=== PATIENT | male | born 1990 | race African-American/Black ===

== ENCOUNTER 2016-04-14 20:22 | Emergency (ER) | payer OTHER, SELFPAY ==
[2016-04-14] MEDS ORDERED: Sulfameth/Trimethoprim DS 800-160mg TAB ONE (21:17)
--- NOTE | 2016-04-14 22:11 | PICIS ---
[facility] EMERGENCY RECORD TRIAGE (TueApr 14, 2016 20:32 MVIL) TRIAGE NOTES: C/O LEFT HAND SWELLING AND PAIN X 2 WEEKS AFTER PUNCHING A GLASS WINDOW. (TueApr 14, 2016 20:32 MVIL) PATIENT: NAME: Fariba Gibbs, AGE: 25, GENDER: male, : Sat 1990, TIME OF GREET: TueApr 14, 2016 20:23, PREFERRED LANGUAGE: Malian, ETHNICITY: Not or , ECODE BILLING MAP: [facility], SSN: [id number], Zip Code: [address], KG WEIGHT: 113.40, HEIGHT/LENGTH: 177.80cm, BMI: 35.87, PHONE: , , , PERSON ID: [id number], PCP: DOROTHY. (TueApr 14, 2016 20:32 MVIL) COMPLAINT: LEFT HAND INJURY. (TueApr 14, 2016 20:32 MVIL) ADMISSION: URGENCY: 4 Non Urgent, ADMISSION SOURCE: Home, TRANSPORT: CAR, BED: ER -03. (TueApr 14, 2016 20:32 MVIL) ASSESSMENT: Assessment: C/O SUDDEN SWELLING TO LEFT HAND TODAY. PATIENT PREVIOUSLY PUNCHED A GLASS WINDOW TWO WEEKS AGO WITH SAME HAND. UTD ON VACCINATIONS., Symptoms began 04/14/2016 20:36, Symptoms began 5 hours ago. (20:38 MVIL) PAIN: Patient complains of pain described as, deep, on a scale 0-10 patient rates pain as 5, Location LEFT HAND, Pain is intermittent, No aggravating factors, No efforts tried to relieve symptoms. (20:38 MVIL) IMMUNIZATIONS: Flu vaccine up to date, Tetanus immunization up to date, Pneumococcal vaccine up to date. (20:38 MVIL) SIRS SCORING: Heart Rate 55-109 (0), Temp range 96.8-101.1 (0), respiratory rate 12-24 (0), Mental Status altered: no (0). (20:38 MVIL) TRIAGE SCREENING: Patient denies suicidal ideation, Patient denies presence of domestic violence. (20:38 MVIL) PROVIDERS: TRIAGE NURSE: Maryann Duncan RN. (TueApr 14, 2016 20:32 MVIL) VITAL SIGNS: BP 144/79, Pulse 75, Resp 20, Temp 98.4, (Oral), Pain 5, O2 Sat 96, on Room Air, Time 04/14/2016 20:29. (20:29 MVIL) PREVIOUS VISIT ALLERGIES: No Known Drug Allergies. (TueApr 14, 2016 20:32 MVIL) No Known Drug Allergies. (20:38 MVIL) KNOWN ALLERGIES No Known Drug Allergies CURRENT MEDICATIONS No recorded medications VITAL SIGNS VITAL SIGNS: BP: 144/79, Pulse: 75, Resp: 20, Temp: 98.4 (Oral), Pain: 5, O2 sat: 96 on Room Air, Time: 04/14/2016 20:29. (20:29 MVIL) BP: 142/64, Pulse: 60, Resp: 20, Pain: 5, O2 sat: 97 on Room Air, Time: 04/14/2016 20:38. (20:38 MVIL) NURSING ASSESSMENT: EXTREMITY UPPER (20:39 MVIL) &a-1R&a+25V*p+0X*g2790L*c202B*c15G*c2P*p-0X&a-25V&a+1R Name: Fariba Gibbs : 1990 M25 MedRec: [id number] AcctNum: [id number] Prepared: TueApr 15, 2016 01:23 by Interface Page 1 of 6 pMD [facility] EMERGENCY RECORD CONSTITUTIONAL: Patient arrives ambulatory, Gait steady, History obtained from patient, Patient appears comfortable, Patient cooperative, Patient alert, Oriented to person, place and time, Skin warm, Skin dry, Skin normal in color, Mucous membranes pink, Mucous membranes moist, Patient is well-groomed, Patient complains of LEFT HAND INJURY, PATIENT PUNCHED A GLASS WINDOW 2 WEEKS AGO. SUDDEN SWELLING NOTED TO THE HAND TODAY. PAIN: deep pain, to the left hand, Onset of pain 04/14/2016 20:42, on a scale 0-10 patient rates pain as 5, Pain exacerbated by nothing, Nothing has been tried to alleviate the pain. LEFT UPPER EXTREMITY: Left upper extremity assessment findings include capillary refill less than 2 seconds, Skin color normal to hand, Skin temperature to hand warm, Distal sensation intact, Muscle tone normal, muscle strength 1, +3 edema present, radial pulse is +4, brachial pulse is +4, Inspection findings include swelling, to LEFT HAND, SWELLING TO TOP OF LEFT HAND. SAFETY: Side rails up, Cart/Stretcher in lowest position, Call light within reach, Hospital ID band on. NURSING PROCEDURE: DISCHARGE NOTE (21:25 MVIL) DISCHARGE: Patient discharged to home, ambulating without assistance, driving self, unaccompanied, Summary of Care printed/ provided, Patient requested and was provided an electronic copy of Discharge Instructions, Transition record given to patient, Discharge instructions given to patient, Prescriptions given and instructions on side effects given, Name of prescription(s) given: BACTRIM, Medication reconciliation form given, Above person(s) verbalized understanding of discharge instructions and follow-up care. BELONGINGS: Belongings and valuables with patient at time of discharge include:. NURSING PROCEDURE: TRANSPORT TO TESTS PATIENT IDENTIFIER: Patient actively involved in identification process, Patient's identity verified by patient stating name, Patient's identity verified by hospital ID bracelet. (20:43 MVIL) TRANSPORT TO TESTS: Transport indicated to facilitate diagnosis, Patient transported to x-ray, ambulatory, Accompanied by x-ray repair technician. (20:43 MVIL) FOLLOW-UP: After procedure, patient returned to emergency department. (20:49 MVIL) ORDER DETAILS Order Name: XR Hand Lt 3 View STANDARD, Status: Active, Time: 20:34 04/14/2016, User: PARAM, - Ordered for: MD Ashraf Darren, - Entered by: MD Ashraf Darren - [facility] Apr 14, 2016 20:34, - Quantity: 1. &a-1R&a+25V*p+0X*x1130C*c202B*c15G*c2P*p-0X&a-25V&a+1R Name: Marthagen Fariba Arcos : 1990 M25 MedRec: [id number] AcctNum: [id number] Prepared: Nancie Apr 15, 2016 01:23 by Interface Page 2 of 6 pMD [facility] EMERGENCY RECORD MEDICATION ADMINISTRATION SUMMARY Drug Name: Bactrim DS, Dose Ordered: 2 tab(s), Route: Oral, Status: Given, Time: 21:20 04/14/2016, Detailed record available in Medication Service section. MEDICATION SERVICE (21:20 DHAM) Bactrim DS: Order: Bactrim DS (sulfamethoxazole/trimethoprim) - Dose: 2 tab(s) : Oral Schedule: Now Ordered by: Rupert Ashraf MD Entered by: Rupert Ashraf MD TueApr 14, 2016 21:13 Documented as given by: Maryann Duncan RN TueApr 14, 2016 21:20 Patient, Medication, Dose, Route and Time verified prior to administration. Amount given: 2 TABS, Correct patient, time, route, dose and medication confirmed prior to administration, Patient advised of actions and side-effects prior to administration, Allergies confirmed and medications reviewed prior to administration, Patient in position of comfort, Side rails up, Cart in lowest position, Family at bedside. HPI HAND (20:35 DHAM) CHIEF COMPLAINT: Patient presents for evaluation of injury, to the left hand. HISTORIAN: History provided by patient. MECHANISM OF INJURY: Known mechanism, Mechanism of injury: hit left fist into glass window 03/28/2016. It swelled for "a few days and the cuts healed up." The swelling had improved but today worsened and the pain has worsened. LOCATION: Symptoms are localized, most severe in the dorsal surface of hand, most severe in the third metacarpal, most severe in the fourth metacarpal. QUALITY: Pain is dull in nature, described as aching, described as pressure-like. SEVERITY: Current severity of pain rated as 5/10. TIME COURSE: Sudden onset of symptoms, 2, weeks ago, Symptoms are worsening, "hard to raise my fingers" (can't extend his left 3rd or 4th fingers) and increased swelling. ASSOCIATED WITH: No associated coolness to touch, No associated decreased use, No associated distal injury, Associated with distal neuro complaint, for 14 to 21 days, constant, No associated elbow pain, No associated erythema, No associated fever, Associated with finger pain, Associated with open wounds, straight laceration, cannot rule out foreign body, puncture wound, bleeding controlled, No associated proximal injury, No associated tingling, Associated with warmth, No associated weakness distal to injury, No &a-1R&a+25V*p+0X*j3492X*c202B*c15G*c2P*p-0X&a-25V&a+1R Name: Fariba Gibbs : 1990 M25 MedRec: [id number] AcctNum: [id number] Prepared: Nancie Apr 15, 2016 01:23 by Interface Page 3 of 6 pMD [facility] EMERGENCY RECORD associated wrist pain, numbness to ulnar side of the left hand just adjacent to the 5th metacarpal. fingers 3 and 4 with normal sensation. EXACERBATED BY: Patient's condition exacerbated by flexion of fingers, Patient's condition exacerbated by extension of all fingers. RELIEVED BY: Patient's condition relieved by remaining still. ROS (20:42 DHAM) CONSTITUTIONAL: Historian denies chills, denies fever, denies lethargy. MUSCULOSKELETAL: Historian reports arthralgias, denies back pain, reports deformity, denies fall, reports injury, reports joint redness, reports joint stiffness, reports joint swelling. SKIN: Historian reports skin lesions, healed lacerations of dorsum of mcp's of 3rd and 4th fingers. NEUROLOGIC: Historian denies confusion, denies paralysis, reports paresthesias, reports sensory changes. HEMO/LYMPHATIC: Historian denies abnormal blood clotting, denies easy bruising. PAST MEDICAL HISTORY (20:38 MVIL) MEDICAL HISTORY: No past medical history. 04/14/16 - HTN, hypercholesterolemia. MALE SURGICAL HISTORY: Patient has no surgical history, Patient has no surgical history. PSYCHIATRIC HISTORY: No previous psychiatric history, No previous psychiatric history. SOCIAL HISTORY: Patient drinks socially, Patient currently uses drugs, abuses marijuana, Last used: 05/24/2015 10:10, Patient currently uses tobacco, smokes cigarettes, daily, patient has smoked for one year, Patient smokes 1/2 packs per day. REVIEWED 04/14/16. PHYSICAL EXAM (20:44 DHAM) CONSTITUTIONAL: Vital Signs Reviewed, Patient afebrile, Pulse normal, Blood pressure normal, Respiratory rate normal, Patient appears non toxic, Patient appears, in moderate pain distress, Patient alert and oriented to person, place and time, Nursing notes reviewed. UPPER EXTREMITY: Pt's only area of pain is the left hand. He has healed lacerations visible dorsally over the left 3rd and 4th mcp's. He has diffuse swelling dorsally over the distal 3rd metacarpal extending over to the 4th distal mcp as well. normal sensation to light touch in all areas of the fingers. normal cap refill to each finger. resisted flexion with normal strength at the profundus and superficialis of all fingers of the left hand. resisted extension of the 4th finger is shows minimal resistance and 3rd finger resisted extension causes pain but strength feels normal. I cannot feel any deformity in the metacarpals though he is tender to palpation of the distal 3rd, 4th and 5th metacarpals. this area of &a-1R&a+25V*p+0X*w1576L*c202B*c15G*c2P*p-0X&a-25V&a+1R Name: Fariba Gibbs : 1990 M25 MedRec: [id number] AcctNum: [id number] Prepared: [facility] Apr 15, 2016 01:23 by Interface Page 4 of 6 pMD [facility] EMERGENCY RECORD swelling if the dorsal hand is not red or swollen or indurated.. No regional lymphadenopathy at the trochlear node or axillary nodes. pt has not rotational abnormality of any of the digits of the left hand. NEURO: Morales coma scale 15, Neuro exam findings include patient oriented to person, place and time, Speech normal, Gait normal, Memory normal, Cranial nerves intact. SKIN: Skin exam included findings of skin warm, dry, and normal in color, no rash. EVENTS TRANSFER: Triage to Emergency Emergency Room -03. (20:32 MVIL) Removed from Emergency Emergency Room -03. (21:25 MVIL) RADIOLOGYINTERPRETATION (21:03 DHAM) UPPER EXTERMITIES: Radiological interpretation of, the left hand shows, fracture noted, to proximal phalanx, 5th finger, which is non-displaced, Foreign body noted, in the dorsal soft tissue of the 4th finger, in the soft tissue of the dorsum of the hand, 2 small flecks of likely glass noted between 4th and 5th mcps, Soft tissue swelling noted, pt has an avlusion fx of the ventral aspect of the proximal end of the 5th proximal phalanx. this is only visible on the lateral view. it appears to involve 15-20% of the articular surface of the prox phalanx at the 5th MCP. O2SAT INTERPRETATION (21:03 DHAM) O2SAT: Single pulse oximetry, Oxygen saturation 97%, on room air, Oxygen saturation interpretation: Normal, No intervention required. DOCTOR NOTES (21:06 DHAM) TEXT: With this small avulsion fx of the prox end of the 5th finger proximal phalanx that involves only 15-20% of articular surface,we should be able to just tx this with jimmy taping the 4th and 5th fingers. He does need evaluation for volar plate injury at this finger. I am also concerned about possible extensor tendon laceration of the 4th and possibly the 3rd fingers due to weakness. as he has had increased pain and swelling, I am going to cover with some antibiotics though this is not classical for cellulitis at this time. I have discussed these xrays and findings with the pt and shown them to him and he understands the risk of severe contractures if these extensor tendons are not repaired. He tells me that he has good insurance and will follow thru with his pcp. He may need to have these small FB removed as well. ORTHO SPLINTING (21:23 DHAM) ORTHO SPLINTING: Side and/or site verified, Patient identification confirmed, Sterile procedures observed, Verbal consent obtained, Splinting indicated for fracture, Pre-procedure assessment: &a-1R&a+25V*p+0X*m2922N*c202B*c15G*c2P*p-0X&a-25V&a+1R Name: Fariba Gibbs : 1990 M25 MedRec: [id number] AcctNum: [id number] Prepared: TueApr 15, 2016 01:23 by Interface Page 5 of 6 pMD [facility] EMERGENCY RECORD capillary refill less than 2 seconds, Distal sensation intact, Distal motor function normal, Jimmy tape applied, to LEFT 4th and 5th fingers jimmy taped at the prox and middle phalanx., Post procedure assessment: capillary refill less than 2 seconds, Distal sensation intact, Distal motor function normal, No signs of compartment syndrome, Patient tolerated the procedure well. PROBLEM LIST No recorded problems DIAGNOSIS (21:12 DHAM) FINAL: PRIMARY: fracture left 5th finger, ADDITIONAL: left hand pain. DISPOSITION PATIENT: Disposition Type: Discharge, Disposition: *Discharge Home. (21:12 DHAM) Patient left the department. (21:25 MVIL) INSTRUCTION (21:17 DHAM) DISCHARGE: FINGER FRACTURE CLOSED, TENDON LACERATION. SPECIAL: Jimmy tape 4th and 5th fingers See your pcp for referral to ortho HAND specialist [facility]. Bactrim DS one twice a day for 10 days OUT OF WORK FOR 2 DAYS WITH REST AND ICE ON 30 MIN AND OFF 30 MIN. RETURN FOR INCREASED PAIN OR SWELLING OR ANY OTHER CONCERNS. PRESCRIPTION (21:19 DHAM) Bactrim DS: TABLET : 800 mg-160 mg : ORAL : Quantity: 1 Unit: tab(s) Route: ORAL Schedule: 2 times a day (before meals) Dispense: 20 Unit: tab(s) May substitute. Refills: No Refills . NOTES: No refills. IMAGING (21:24 MVIL) *DISCHARGE INSTRUCTIONS RECEIPT: Image captured from scanner. *SUPPLY CHARGE SHEET: Image captured from scanner. ADMIN (TueApr 15, 2016 01:20 DHA) DIGITAL SIGNATURE: MD Ashrfa Darren. Rodriguez: DHAM=MD Ashraf Darren MVIL=TRACY Duncan, Maryann &a-1R&a+25V*p+0X*y5705O*c202B*c15G*c2P*p-0X&a-25V&a+1R Name: Fariba Gibbs : 1990 M25 MedRec: [id number] AcctNum: [id number] Prepared: TueApr 15, 2016 01:23 by Interface Page 6 of 6 pMD MTDD
--- NOTE | 2016-04-14 23:35 | RAD ---
LEFT HAND THREE VIEWS 04/14/16 There are two small opaque foreign bodies seen between the base of the fourth and fifth digits in th e web space. This could potentially be foreign bodies from the recent trauma. Otherwise, the exam sh owed no fracture or other acute change. IMPRESSION: Potential foreign bodies between the fourth and fifth digits proximally. Code T POS: HOME
== END 2016-04-14 21:20 | disposition home or self-care (01) ==
LOC: BURERS 20:22
DX: S62.647A Nondisplaced fracture of proximal phalanx of left little finger, initial encounter for closed fracture (principal); I10 Essential (primary) hypertension; E78.00 Pure hypercholesterolemia, unspecified; F17.210 Nicotine dependence, cigarettes, uncomplicated; X58.XXXA Exposure to other specified factors, initial encounter
CPT/HCPCS: 99283